=== PATIENT | female | born 1985 | race Caucasian/White ===

== ENCOUNTER 2016-09-25 11:02 | Emergency (ER) | payer OTHER ==
[~2016-09-25] VITALS: Ht 175.3 cm; Wt 59.0 kg
[2016-09-25 11:18] VITALS: BP 150/89
[2016-09-25] MEDS ORDERED: LOESTRIN FE 1.1 EACH PO (12:00)
[2016-09-25] MEDS ORDERED: PROVENTIL HFA6.7 GM INH (12:16)
[2016-09-25] MEDS ORDERED: TAMIFLU75 M1 PO (12:16)
[2016-09-25] MEDS ORDERED: BENZONATATE200 M1 PO (12:16)
--- NOTE | 2016-09-25 12:17 | ED INFLUENZA/URI COMPLAINT ---
History of Present Illness General Chief Complaint: General Adult Stated Complaint: FLU S/S Source: patient Exam Limitations: no limitations Vital Signs & Intake/Output Vital Signs & Intake/Output Vital Signs Date Time Temp Pulse Resp B/P Pulse O2 O2 Flow FiO2 Ox Delivery Rate 09/25 1137 99 Room Air 09/25 1118 97.9 113 20 150/89 99 Room Air Room Air Allergies Coded Allergies: No Known Allergies (09/25/16) Reconcile Medications Albuterol Sulfate (Proventil Hfa) 90 MCG HFA.AER.AD 2 PUF INH Q4 cough Benzonatate 200 MG CAPSULE 1 CAP PO TIDPRN cough Norethindrone-E.estradiol-Iron (Loestrin Fe 1.5-30 Tablet) 1.5 MG-30 MCG (21)/75 MG (7) TABLET 1 TAB PO DAILY BC (Reported) Oseltamivir Phosphate (Tamiflu) 75 MG CAPSULE 1 CAP PO BID flu Triage Note: PT TO ED WITH C/O ALL OVER BODY ACHES, CHILLS FOR 2 DAYS. Triage Nurses Notes Reviewed? yes Onset: Abrupt Duration: day(s): (2), constant, continues in ED Timing: recent history Severity: moderate, severe No Modifying Factors: none : No Patient currently breastfeeds: No HPI: 31-year-old female comes into emergency room for evaluation of burning cough, runny nose, fever chills and body aches and fatigue has been going on for the past 2 days. Denies any other associated symptoms. Some mild yellow mucus production and times. Denies any other associated symptoms. Past History Travel History Traveled to [place] past 21 day No Medical History Any Pertinent Medical History? 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 No Review of Systems Review of Systems Constitutional: Reports: see HPI. EENTM: Reports: see HPI. Respiratory: Reports: see HPI. Cardiovascular: Reports: no symptoms. GI: Reports: no symptoms. Genitourinary: Reports: no symptoms. Musculoskeletal: Reports: no symptoms. Skin: Reports: no symptoms. Neurological/Psychological: Reports: no symptoms. Hematologic/Endocrine: Reports: no symptoms. Immunologic/Allergic: Reports: no symptoms. All Other Systems: Reviewed and Negative Physical Exam Physical Exam General Appearance: well developed/nourished, alert, awake Head: atraumatic, normal appearance Eyes: Bilateral: normal appearance. Ears, Nose, Throat: normal ENT inspection, moist mucous membrane, hearing grossly normal Neck: normal inspection Respiratory: normal breath sounds, no respiratory distress Cardiovascular: regular rate/rhythm Back: normal inspection Extremities: normal inspection, normal range of motion Neurologic/Psych: awake, alert, oriented x 3, normal gait, normal mood/affect Skin: intact, normal color Core Measures Severe Sepsis Present: No Septic Shock Present: No Progress Differential Diagnosis: influenza, meningitis, neutropenia, otitis, pneumonia, pharyngitis, sinusitis Plan of Care: Orders Procedure Date/time Status VIRAL CULTURE 09/25 112 Active RAPID VIRAL INFLUENZA A 09/25 112 Complete Laboratory Tests 09/25/16 1125: Virus Culture Pending Microbiology 09/25 1124 NASOPHARYN: Influenza Virus A & B Rapid Smear - COMP INFLUENZA TYPE A Initial ED EKG: none Comments: 09/25/2016 12:20:58 PM Patient clinically looks well. Nontoxic-appearing. In no apparent distress. Positive flu. Departure Departure Disposition: HOME OR SELF CARE Condition: Stable Clinical Impression Primary Impression: Influenza A Referrals: DAYRON LEVIN MD (PCP/Family) Additional Instructions: Take Tamiflu, albuterol, and Tessalon Perles as prescribed. Take Motrin 800 mg 3 times a day at home for body aches. Tylenol as needed. Rest. Drink plenty of fluids. Isolation precautions. Please go over all results of today's visit with your primary care doctor. Contact your primary care doctor to let them know you were here in the emergency room. There may be nonspecific findings which may not be related to your visit today here in the emergency room but may require further evaluation and chronic monitoring by your primary care doctor. If you had a laceration today the chance of foreign body always remains. You should follow-up with your primary care doctor for recheck in 3-5 days for a wound check. If you had an x-ray done there is a chance that a fracture could have been missed on initial read and you should follow-up with your primary care doctor for repeat x-rays if symptoms persist. If your blood pressure was elevated here in the emergency room please have rechecked by her primary care doctor within the next 48 hours by your primary care doctor. If you were prescribed a narcotic here in the emergency room or any type of controlled substances you're not allowed to drive while taking this medication or operate any type of heavy machinery. Narcotics can make you feel lightheaded dizziness nausea and can cause constipation. You may need to case picker a stool softener. Thank you for choosing [facility] emergency room. Please return to the emergency room immediately if you have any other concerns worsening of symptoms. Departure Forms: Customer Survey General Discharge Information Prescriptions: Current Visit Scripts Oseltamivir Phosphate (Tamiflu) 1 CAP PO BID #10 CAP Benzonatate 1 CAP PO TIDPRN #30 CAP Albuterol Sulfate (Proventil Hfa) 2 PUF INH Q4 #1 INHAL
== END 2016-09-25 12:25 ==
LOC: ERH 11:02
DX: J09.X2 Influenza due to identified novel influenza A virus with other respiratory manifestations (principal)
CPT/HCPCS: 87804; 87804-59